=== PATIENT | male | born 1975 | race Caucasian/White ===

== ENCOUNTER 2017-10-14 19:32 | Emergency (ER) | payer OTHER ==
[~2017-10-14] VITALS: Ht 165.1 cm; Wt 73.0 kg
[2017-10-14 19:45] VITALS: Ht 165.1 cm; Wt 73.0 kg
[2017-10-14 20:53] LABS: BASOPHIL % 0.3 % (0-2); PLATELET COUNT 168 x10^3mcL (130-400); RED CELL DISTRIBUTION WIDTH 13.3 % (11.5-14.5)
[2017-10-14 21:04] LABS: ALBUMIN 3.4 g/dL (3.4-5.0); ALKALINE PHOSPHATASE 103 U/L (46-116); ALT/SGPT 30 U/L (16-63); AST/SGOT 17 U/L (15-37); BILIRUBIN TOTAL 0.42 mg/dL (0.20-1.00); CALCIUM 8.6 mg/dL (8.5-10.1); CARBON DIOXIDE 24.7 mmol/L (21-32); CHLORIDE SERUM 101 mmol/L (98-107); CREATININE SERUM 1.1 mg/dL (0.7-1.3); GFR1 > 60 mL/min; GLUCOSE SERUM 262 mg/dL (74-106); TOTAL PROTEIN, SERUM 7.1 g/dL (6.4-8.2)
[2017-10-14 21:12] LABS: POTASSIUM SERUM 4.1 mmol/L (3.5-5.1); SODIUM SERUM 134 mmol/L (136-145)
[2017-10-14 21:46] VITALS: BP 129/83
== END 2017-10-14 21:46 | disposition home or self-care (01) ==
LOC: ED 19:32
PROVIDERS: Emergency Medicine
DX: L03.114 Cellulitis of left upper limb (principal); E11.9 Type 2 diabetes mellitus without complications
CPT/HCPCS: J0696

== ENCOUNTER 2018-08-25 19:19 | Emergency (ER) | payer OTHER ==
[~2018-08-25] VITALS: Ht 165.1 cm; Wt 72.6 kg
[2018-08-25 19:22] VITALS: Ht 165.1 cm; Wt 72.6 kg
[2018-08-25 20:36] VITALS: BP 118/76
== END 2018-08-25 20:36 | disposition home or self-care (01) ==
LOC: ED 19:19
DX: T23.201A Burn of second degree of right hand, unspecified site, initial encounter (principal); X08.8XXA Exposure to other specified smoke, fire and flames, initial encounter; Y93.89 Activity, other specified; Y92.89 Other specified places as the place of occurrence of the external cause; Y99.8 Other external cause status
CPT/HCPCS: 82962

== ENCOUNTER 2019-07-29 17:18 | Emergency (ER) | payer OTHER ==
[~2019-07-29] VITALS: Ht 165.1 cm; Wt 70.3 kg
[2019-07-29 17:29] VITALS: Ht 165.1 cm; Wt 70.3 kg
[2019-07-29 19:39] VITALS: BP 150/66
== END 2019-07-29 19:39 | disposition home or self-care (01) ==
LOC: ED 17:18
DX: S92.414A Nondisplaced fracture of proximal phalanx of right great toe, initial encounter for closed fracture (principal); E11.9 Type 2 diabetes mellitus without complications; W22.8XXA Striking against or struck by other objects, initial encounter; Y93.89 Activity, other specified; Y92.89 Other specified places as the place of occurrence of the external cause; Y99.8 Other external cause status
CPT/HCPCS: Q0092

== ENCOUNTER 2020-02-14 15:50 | Emergency (ER) | payer OTHER ==
[~2020-02-14] VITALS: Ht 165.1 cm; Wt 80.3 kg
[2020-02-14 16:31] VITALS: BP 142/85; Ht 165.1 cm; Wt 80.3 kg
[2020-02-14 18:40] LABS: BASOPHIL % 1.1 % (0.2-1.5); PLATELET COUNT 197 x10^3mcL (152-348); RED CELL DISTRIBUTION WIDTH 14.2 % (12.1-16.2)
[2020-02-14 18:43] LABS: CALCIUM 8.4 mg/dL (8.5-10.1); CARBON DIOXIDE 27.2 mmol/L (21-32); CREATININE SERUM 1.6 mg/dL (0.7-1.3); POTASSIUM SERUM 4.4 mmol/L (3.5-5.1)
[2020-02-14 18:48] LABS: BILIRUBIN TOTAL 0.2 mg/dL (0.20-1.00); TOTAL PROTEIN, SERUM 6.4 g/dL (6.4-8.2)
[2020-02-14 19:04] LABS: ALBUMIN 2.9 g/dL (3.4-5.0)
== END 2020-02-14 19:59 | disposition home or self-care (01) ==
LOC: ED 15:50
PROVIDERS: Emergency Medicine
DX: R22.43 Localized swelling, mass and lump, lower limb, bilateral (principal); E11.9 Type 2 diabetes mellitus without complications
CPT/HCPCS: 83880

== ENCOUNTER 2020-03-16 16:05 | Emergency (ER) | payer OTHER ==
[~2020-03-16] VITALS: Ht 165.1 cm; Wt 77.1 kg
[2020-03-16 16:14] VITALS: Ht 165.1 cm; Wt 77.1 kg
[2020-03-16 19:27] VITALS: BP 158/71
== END 2020-03-16 19:37 | disposition home or self-care (01) ==
LOC: ED 16:05
DX: S06.0X9A Concussion with loss of consciousness of unspecified duration, initial encounter (principal); E11.9 Type 2 diabetes mellitus without complications; W01.0XXA Fall on same level from slipping, tripping and stumbling without subsequent striking against object, initial encounter; Y93.9 Activity, unspecified; Y92.89 Other specified places as the place of occurrence of the external cause; Y99.8 Other external cause status
CPT/HCPCS: J2270; Q0162